=== PATIENT | male | born 2000 | race Caucasian/White ===

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

== ENCOUNTER 2021-05-08 15:50 | Inpatient (IN) | payer OTHER ==
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
--- NOTE | 2021-05-08 16:52 | XR ---
EXAMINATION TYPE: XR tibia fibula RT, XR ankle complete RT DATE OF EXAM: 05/08/2021 CLINICAL HISTORY: Fall injury 3 days ago with pain. TECHNIQUE: Two views of the right leg are obtained. 3 views right ankle. COMPARISON: None. FINDINGS: There is acute comminuted slightly displaced fracture through the distal tibial diaphysis. Distal fracture fragment is slightly impacted along with 5 mm lateral displacement. Adjacent fibula is intact. Mild to moderate diffuse subcutaneous edema with more focal moderate to severe subcutaneou s edema soft tissue swelling over the medial and lateral malleolus. No proximal leg fracture. Impression: Acute comminuted slightly displaced fracture distal tibial diaphysis. Orthopedic surgical referral advised.
[2021-05-08] MEDS ORDERED: ACETAMINOPHEN TAB 325 MG TAB PO PRN (17:44)
[2021-05-08] MEDS ORDERED: IBUPROFEN 400 MG TAB PO PRN (17:44)
[2021-05-08] MEDS ORDERED: MORPHINE SULFATE 4 MG/ML SYRINGE IV PRN (17:44)
[2021-05-08] MEDS ORDERED: traMADol 50 MG TAB PO PRN (17:44)
[2021-05-08] MEDS ORDERED: HYDROcodone/APAP 5-325MG 1 EACH TAB PO PRN (17:44)
[2021-05-08] MEDS ORDERED: NALOXONE 0.4 MG/ML 1 ML VIAL IV PRN (17:44)
[2021-05-08] MEDS ORDERED: LORazepam 2 MG/ML INJ IV PRN (17:44)
[2021-05-08 18:15] LABS: Basophils # (A) 0.1 k/uL (0-0.2); Basophils % (A) 1 %; Eosinophils # (A) 0.1 k/uL (0-0.7); Eosinophils % (A) 1 %; HGB 15.2 gm/dL (13.0-17.5); Lymphocytes # (A) 1.4 k/uL (1.0-4.8); Lymphocytes % (A) 13 %; MCH 29.6 pg (25.0-35.0); MCHC 33.8 g/dL (31.0-37.0); MCV 87.6 fL (80.0-100.0); Mean Platelet Volume 7.2; Monocytes # (A) 0.6 k/uL (0-1.0); Monocytes % (A) 5 %; Neutrophils # (A) 8.9 k/uL (1.3-7.7); Neutrophils % (A) 80 %; Platelet Count 258 k/uL (150-450); RBC 5.14 m/uL (4.30-5.90); RDW 13.4 % (11.5-15.5); WBC 11.1 k/uL (4.0-11.0)
[2021-05-08 18:24] LABS: ALT 44 U/L (4-49); AST 41 U/L (17-59); African American GFR (CKD) >90 (>60 ml/min/1.73 sqM); Albumin 4.8 g/dL (3.5-5.0); Alkaline Phosphatase 49 U/L (38-126); Anion Gap 10 mmol/L; Blood Urea Nitrogen 11 mg/dL (9-20); Calcium 9.9 mg/dL (8.4-10.2); Carbon Dioxide 26 mmol/L (22-30); Chloride 104 mmol/L (98-107); Glucose 83 mg/dL (74-99); Non-African American GFR(CKD) >90 (>60 ml/min/1.73 sqM); Sodium 140 mmol/L (137-145); Total Bilirubin 0.9 mg/dL (0.2-1.3); Total Protein 7.7 g/dL (6.3-8.2)
[2021-05-09] MEDS ORDERED: HYDROmorphone 0.5 MG/0.5 ML SYRINGE IVP PRN ×2 (10:05→19:01)
[2021-05-09] MEDS ORDERED: SODIUM CHLORIDE 0.9% 1,000 ML IV SCH (10:15)
--- NOTE | 2021-05-09 11:44 | P.PN ---
Progress Note - Text Progress Note Date: 05/09/21 Patient is medically optimized for this emergent non cardiac procedure. No additional testing required. Formal consult to follow.
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
[2021-05-09] MEDS ORDERED: IV FLUID CONTINUATION 1,000 ML IV ONE (15:28)
[2021-05-09] MEDS ORDERED: ONDANSETRON 4 MG/2 ML VIAL ONE (15:58)
[2021-05-09] MEDS ORDERED: ONDANSETRON 4 MG/2 ML VIAL IVP ONE (16:00)
[2021-05-09] MEDS ORDERED: MIDAZOLAM 2 MG/2 ML VIAL IVP ONE (16:08)
[2021-05-09] MEDS ORDERED: LIDOCAINE 1% INJ 10MG/ML (20 ML MDV) ONE (16:36)
[2021-05-09] MEDS ORDERED: fentaNYL (PF) 50 MCG/ML 2 ML AMP ONE (16:36)
[2021-05-09] MEDS ORDERED: PROPOFOL 10 MG/ML 20 ML VIAL IV ONE (16:36)
[2021-05-09] MEDS ORDERED: KETAMINE 10 MG/ML 20 ML VIAL ONE (16:36)
[2021-05-09] MEDS ORDERED: MIDAZOLAM 2 MG/2 ML VIAL ONE (16:36)
[2021-05-09] MEDS ORDERED: HYDROmorphone (PF) 1 MG/ML ONE (16:36)
[2021-05-09] MEDS ORDERED: SUCCINYLCHOLINE CHLORIDE VIAL 200 MG/10 ML VIAL IV ONE (16:36)
[2021-05-09] MEDS ORDERED: SODIUM CHLORIDE 0.9% 50 ML with ceFAZolin 2,000 MG IV ONE ×2 (16:41)
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
[2021-05-09] MEDS ORDERED: LACTATED RINGERS 1,000 ML IV ONE (18:47)
[2021-05-09] MEDS ORDERED: BENZOCAINE/MENTHOL LOZENG 1 EACH LOZENGE MUCOUS MEM PRN (19:01)
[2021-05-09] MEDS ORDERED: MAGNESIUM HYDROXIDE 2,400 MG/10 ML CUP PO PRN ×2 (19:01→19:02)
[2021-05-09] MEDS ORDERED: NALOXONE 0.4 MG/ML 1 ML VIAL IV PRN (19:02)
[2021-05-09] MEDS ORDERED: traMADol 50 MG TAB PO PRN (19:02)
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
[2021-05-09] MEDS ORDERED: HYDROmorphone 0.5 MG/0.5 ML SYRINGE IVP ONE ×3 (19:33→19:51)
[2021-05-09] MEDS: HYDROcodone/APAP 5-325MG 1 EACH TAB PO PRN (20:50)
[2021-05-09] MEDS: ASPIRIN 325 MG TAB PO SCH (20:50)
[2021-05-09] MEDS: SODIUM CHLORIDE 0.9% 1,000 ML IV SCH (20:53)
[2021-05-09 21:42] LABS: Basophils % (A) 0 %; Eosinophils % (A) 0 %; HCT 43.2 % (39.0-53.0); HGB 15.3 gm/dL (13.0-17.5); Lymphocytes # (A) 1.1 k/uL (1.0-4.8); Lymphocytes % (A) 7 %; MCH 31.3 pg (25.0-35.0); MCHC 35.5 g/dL (31.0-37.0); Mean Platelet Volume 7.2; Monocytes # (A) 0.6 k/uL (0-1.0); Monocytes % (A) 4 %; Neutrophils # (A) 13.6 k/uL (1.3-7.7); Neutrophils % (A) 88 %; Platelet Count 283 k/uL (150-450); RDW 12.9 % (11.5-15.5); WBC 15.4 k/uL (4.0-11.0)
[2021-05-09] MEDS: HYDROmorphone 1 MG/ML 1 ML SYRINGE IVP PRN (22:00)
[2021-05-09 23:17] VITALS: RESP 18
[2021-05-09] MEDS: KETOROLAC 15 MG/ML 1 ML VIAL IVP PRN (23:41)
[2021-05-10] MEDS: HYDROmorphone 1 MG/ML 1 ML SYRINGE IVP PRN ×3 (00:38→10:25)
[2021-05-10] MEDS: KETOROLAC 15 MG/ML 1 ML VIAL IVP PRN (06:26)
[2021-05-10 07:13] VITALS: BP 153/80; PULSE 69; TEMP 97.8
--- NOTE | 2021-05-10 07:28 | FL ---
EXAMINATION TYPE: FL guidance operating room, XR tibia fibula RT DATE OF EXAM: 05/09/2021 CLINICAL HISTORY: Distal tibial fracture. TECHNIQUE: Fluoroscopy. Intraoperative 2 views right tibia and fibula. COMPARISON: Right leg x-ray from yesterday.. FINDINGS: Fluoroscopic guidance was provided during open reduction and internal fixation procedure p erformed by Dr. Herrera. A total of 3 minutes 59 seconds of fluoroscopic time was utilized during the procedure and 5 spot images was acquired. Intraoperative images acquired show placement of large intramedullary dawn with 2 proximal fixating sc rews and distal transverse fixating screw through comminuted slightly displaced fracture distal tibia l diaphysis. Satisfactory alignment is seen on intraoperative images obtained. IMPRESSION: As Above.
[2021-05-10] MEDS: ASPIRIN 325 MG TAB PO SCH (08:16)
[2021-05-10] MEDS: SODIUM CHLORIDE 0.9% 1,000 ML IV SCH (08:16)
[2021-05-10] MEDS: HYDROcodone/APAP 5-325MG 1 EACH TAB PO PRN (08:16)
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
== END 2021-05-10 12:55 | disposition home or self-care (01) | DRG 494 ==
LOC: EC 15:50 → 4SSUR 17:44 → OBSVTOIN 05-09 10:05
PROVIDERS: ADMIT Orthopaedic Surgery Orthopaedic Surgery of the Spine; ATTEND Orthopaedic Surgery Orthopaedic Surgery of the Spine
PROC: 0QSG36Z Reposition Right Tibia with Intramedullary Internal Fixation Device, Percutaneous Approach (ICD-10-PCS; principal; 2021-05-09 13:45)
DX: S82.201A Unspecified fracture of shaft of right tibia, initial encounter for closed fracture (principal); V29.9XXA Motorcycle rider (driver) (passenger) injured in unspecified traffic accident, initial encounter; J45.909 Unspecified asthma, uncomplicated; Z87.891 Personal history of nicotine dependence; Z20.822 Contact with and (suspected) exposure to COVID-19
CPT/HCPCS: 36415; 80053; 85025; 85730; 87635; 99284